=== PATIENT | female | born 1935 | race Caucasian/White ===

== ENCOUNTER 2016-11-05 08:37 | Day surgery (SDC) | payer OTHER, BC ==
[2016-10-30 08:51] VITALS: BMI 25.0
[~2016-11-05] VITALS: Ht 165.1 cm; Wt 68.2 kg
[~2016-11-05 08:37] MED LIST: ASPI81TA28 PO; B-COTAB18 PO; BIMA0.01 OPR; BRIM0.1S OP; CALC-354 PO; CEFAZOLIN 2000 MG/60 ML D5W IV SCH; GLUC10007 PO; MESA1TAB4 PO; METO25TA3 PO; MULTCHW PO; OXYC-57 PO; PANT40TA PO; PRAV20TA PO; SODIUM CHLORIDE 0.9% 1000ML 1,000 ML IV SCH
[2016-11-05 09:30] VITALS: BP 175/79; PULSE 86; TEMP 36.5; O2SAT 96; Ht 165.1 cm; Wt 68.2 kg
--- NOTE | 2016-11-05 11:03 | History & Physical Bridge Note ---
H&P Re-Evaluation Bridge Note: I have examined the patient, reviewed the History & Physical and in the interval since the performance of the History & Physical I have noted the following changes of clinical significance: No changes noted
[2016-11-05] MEDS ORDERED: OXYC-57 PO (11:06)
--- NOTE | 2016-11-05 11:08 | Discharge Instructions ---
Discharge Instructions Date of Service November 05, 2016. Visit Reason for Visit: Breast Cancer, Poor Venous Access Discharge Discharge Diagnosis / Problem: A-port Discharge Goals Goal(s): Improve disease control Activity Recommendations Activity Limitations: as noted below Shower/Bathe: keep incision dry (for 2 days) Anesthesia . Post Anesthesia Instructions: If you have had General Anesthesia or IV Sedation: * Do not drive today. * Resume driving when surgeon permits. * Do not make important decisions or sign legal documents today. * Call surgeon for: 1. Temperature elevations greater than 101 degrees F. 2. Uncontrollable pain. 3. Excessive bleeding. 4. Persistent nausea and vomiting. 5. Medication intolerance (nausea, vomiting or rash). * For nausea and vomiting use only clear liquids such as: tea, soda, bouillon until nausea subsides, then gradually increase diet as tolerated. * If you have any concerns or questions, call your surgeon's office. If physician is unavailable and it is an emergency, call 911 or go to the nearest emergency room. . Instructions / Follow-Up Instructions / Follow-Up Dr. Cameron's office in 2 weeks to have sutures removed, call [phone] to schedule Diet Recommendations Recommended Home Diet: no limitations Pending Studies Studies pending at discharge: no Medical Emergencies . Who to Call and When: Medical Emergencies: If at any time you feel your situation is an emergency, please call 911 immediately. . Non-Emergent Contact Non-Emergency issues call your: Surgeon Call Non-Emergent contact if: you have a fever, temperature is above 101.5, your pain is not controlled, wound has increased redness . . "Provider Documentation" section prepared by Monster Dai. .
[2016-11-05] MEDS ORDERED: LIDOCAINE HCL 2% 2 ML VIAL (20MG/ML) ONE (11:36)
[2016-11-05] MEDS ORDERED: FENTANYL CITRATE INJ 50 MCG/1 ML 2 ML VIAL ONE (11:36)
[2016-11-05] MEDS ORDERED: PROPOFOL IV EMULSION 10 MG/ML 20 ML VIAL IV ONE ×2 (11:36→12:40)
[2016-11-05] MEDS ORDERED: OXYCODONE/ACETAMINOPHEN 5-325 TAB ONE (12:03)
[2016-11-05] MEDS ORDERED: NURSING VERBAL MED ORDER ONE (12:15)
[2016-11-05] MEDS ORDERED: LIDOCAINE HCL 1% 20 ML VIAL ONE ×2 (12:17→12:39)
[2016-11-05] MEDS ORDERED: THROMBIN FOR SOLN 20000 UNIT KIT ONE (12:17)
[2016-11-05] MEDS ORDERED: CEFAZOLIN SOD 1 GM VIAL ONE (12:17)
[2016-11-05] MEDS ORDERED: HEPARIN SOD (PORCINE) 1000 UNIT/ML 10 ML VIAL ONE (12:18)
[2016-11-05] MEDS ORDERED: CONRAY 60% 50 ML VIAL ONE (12:24)
[2016-11-05] MEDS ORDERED: FENTANYL CITRATE INJ 50 MCG/1 ML 2 ML VIAL IV PRN (13:00)
[2016-11-05] MEDS ORDERED: ATROPINE SULFATE 0.1 MG/ML 5ML SYR IV PRN (13:00)
[2016-11-05] MEDS ORDERED: ONDANSETRON INJ 2 MG/ML 2 ML VIAL IV PRN (13:00)
[2016-11-05] MEDS ORDERED: EpHEDrine SULFATE INJ 50 MG/ML AMP IV PRN (13:00)
[2016-11-05] MEDS ORDERED: LACTATED RINGER'S 1000ML 1,000 ML IV SCH (13:12)
[2016-11-05] MEDS ORDERED: MoRPHine SULFATE 2 MG/ML CARP IV PRN (13:15)
[2016-11-05] MEDS ORDERED: OXYCODONE/ACETAMINOPHEN 5-325 TAB PO PRN ×3 (13:15→13:30)
--- NOTE | 2016-11-05 13:25 | [facility] Post Operative Brief Note ---
Immediate Operative Summary Operative Date November 05, 2016. 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 Cameron [employer] Supervisor Surgeon(s) nurses Estimated Blood Loss 5 ml Findings venogram- occluded Lt subclavian vein Specimens None Anesthesia local/ sedation Complication(s) None Disposition Recovery Room / PACU
--- NOTE | 2016-11-05 13:29 | Anesthesiology Progress Note ---
Anesthesia Post Op Note Date & Time November 05, 2016 at 13:29 Vital Signs Pain Intensity: 0 Vital Signs Past 12 Hours Date Time Temp Pulse Resp B/P Pulse Ox O2 Delivery O2 Flow Rate FiO2 11/05/16 13:25 80 20 139/70 96 Room Air 11/05/16 13:15 36.3 81 20 151/70 100 Room Air 11/05/16 09:30 36.5 86 20 175/79 96 Room Air Notes Mental Status: alert / awake / arousable, participated in evaluation Pt Amnestic to Procedure: Yes Nausea / Vomiting: adequately controlled Pain: adequately controlled Airway Patency, RR, SpO2: stable & adequate BP & HR: stable & adequate Hydration State: stable & adequate Anesthetic Complications: no major complications apparent
[2016-11-05 13:43] VITALS: BP 139/78; PULSE 82; TEMP 36.7; O2SAT 98
[2016-11-05 14:10] VITALS: BP 144/61; PULSE 82; TEMP 36.9; O2SAT 96
--- NOTE | 2016-11-05 14:10 | OPERATIVE REPORT ---
DATE OF OPERATION: 11/05/2016 NAME OF OPERATION: Attempted left subclavian port placement. PREOPERATIVE DIAGNOSIS: Breast cancer. 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 PROCEDURE: The patient was brought in the operating room and placed on the operating table in supine position. After appropriate sedation, I was able to use the SonoSite to assess her left internal jugular vein which was very small, approximately 1/3 normal size and then her neck and chest were prepped and draped in usual fashion. Using 0.5% plain Marcaine, skin and subcutaneous tissue over the left deltopectoral groove were anesthetized. Incision made carrying dissection down to the left cephalic vein which was patent. It was ligated distally using 2-0 silk suture and then opened. I was unable to pass the catheter. I was able to pass a wire into the subclavian vein, but no further. At this point, I obtained an Angiocath and contrast and performed a venogram of the left subclavian vein which showed it to be occluded proximally with significant collaterals. At this point, I did not feel it was appropriate to push ahead, especially on the right side where she already has pain and swelling in the right arm. The cephalic vein on the left side was ligated, deep tissue reapproximated using 2-0 plain catgut suture then the skin reapproximated using 4-0 nylon suture. 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 I attest to the content of the Intraoperative Record and any orders documented therein. Any exceptio ns are noted below.
== END 2016-11-05 14:30 | disposition home or self-care (01) ==
LOC: C.ACU 08:37
PROVIDERS: ATTEND Surgery
DX: C50.919 Malignant neoplasm of unspecified site of unspecified female breast (principal); I82.B12 Acute embolism and thrombosis of left subclavian vein; I87.8 Other specified disorders of veins; H40.9 Unspecified glaucoma; E78.00 Pure hypercholesterolemia, unspecified; R56.9 Unspecified convulsions; Z82.3 Family history of stroke; Z79.82 Long term (current) use of aspirin; Z79.899 Other long term (current) drug therapy; Z53.8 Procedure and treatment not carried out for other reasons